=== PATIENT | female | born 1955 | race Caucasian/White ===

== ENCOUNTER 2018-08-20 14:08 | Emergency (ER) | payer BC ==
[2018-08-20 14:46] LABS: #Eosinphils 0.1 thou/uL (0.0-0.7); #Monocytes 0.3 thou/uL (0.11-0.59); #Neutrophils 3.3 thou/uL (1.40-6.50); %Basophils 0.3 % (0.0-1.0); %Eosinophils 1.3 % (0.0-10.0); %Lymphocytes 21.9 % (21.0-51.0); %Monocytes 6.2 % (0.0-10.0); %Neutrophils 70.3 % (42.0-75.0); Hemoglobin 13.2 g/dL (12.0-16.0); Mean Corpuscular HGB CONC 34.9 g/dL (32.0-36.0); Mean Corpuscular Hemoglobin 29.9 pg (27.0-31.0); Mean Corpuscular Volume 85.9 fL (78.0-98.0); Mean Platelet Volume 6.6 fL (7.4-10.4); Platelet Count 177 thou/uL (130-400); RBC Distribution Width 13.3 % (11.5-14.5); White Blood Cell (WBC) Count 4.7 thou/uL (4.8-10.8)
[2018-08-20 15:06] LABS: ALT (SGPT) 141 U/L (8-55); AST (SGOT) 163 U/L (5-34); Albumin 4.2 g/dL (3.4-4.8); Alkaline Phosphatase 88 U/L (40-150); Anion Gap 14 mmol/L (10-20); BUN (Urea Nitrogen) 15 mg/dL (9.8-20.1); Bilirubin, Total 1.4 mg/dL (0.2-1.2); Calc. Creatinine Clearance 0 mL/min (70-130); Calcium 9.4 mg/dL (7.8-10.44); Carbon Dioxide 22 mmol/L (23-31); Chloride 105 mmol/L (98-107); Estimated GFR-MDRD 71; Globulin 3.2 g/dL (2.4-3.5); Glucose 112 mg/dL (80-115); Protein, Total 7.4 g/dL (6.0-8.3); Sodium 137 mmol/L (136-145)
[2018-08-20] MEDS ORDERED: Aspirin Chewable 81 MG TAB ONE (15:23)
[2018-08-20 17:17] LABS: Troponin I Less than 0.010 ng/mL (< 0.028)
== END 2018-08-20 17:39 | disposition home or self-care (01) ==
LOC: ERS 14:08
DX: I10 Essential (primary) hypertension (principal); E11.9 Type 2 diabetes mellitus without complications; Z79.82 Long term (current) use of aspirin; Z79.899 Other long term (current) drug therapy; Z79.4 Long term (current) use of insulin
CPT/HCPCS: 36415; 80053; 84484; 85025; 93005; 94760

== ENCOUNTER → 2023-11-11 | Day surgery (SDC) | payer MEDICARE ==
[2023-11-08 11:59] VITALS: BMI 30.4
[~2023-11-11] MED LIST: Heparin 10,000 UNITS/ 10 ML VIAL ONE; Midazolam HCl 2 mg/2 ml Vial ONE; Nitroglycerin 50 MG/250 ML BOT 250 ML ONE; Verapamil 5 MG/2 ML VIAL ONE; fentaNYL 50 mcg/mL 1 mL Vial ONE
[2023-11-11 10:30] LABS: Hematocrit 37.5 % (36.0-47.0); Hemoglobin 12.4 g/dL (12.0-16.0); Mean Corpuscular HGB CONC 33.1 g/dL (32.0-36.0); Mean Corpuscular Hemoglobin 28.2 pg (27.0-31.0); Mean Corpuscular Volume 85.2 fL (78.0-98.0); Mean Platelet Volume 8.9 fL (7.4-10.4); Platelet Count 183 10x3/uL (130-400); RBC Distribution Width 13.6 % (11.5-14.5)
[2023-11-11 10:41] LABS: Anion Gap 12 mmol/L (10-20); BUN (Urea Nitrogen) 9 mg/dL (9.8-20.1); Calc. Creatinine Clearance 85 mL/min (70-130); Calcium 9.9 mg/dL (7.8-10.44); Carbon Dioxide 24 mmol/L (23-31); Cardiac Risk 4.2 (Less than 4.5); Chloride 104 mmol/L (98-107); Cholesterol 139 mg/dl (< 200 Desired); Estimated GFR 72; Glucose 207 mg/dL (80-115); HDL Cholesterol 33 mg/dL (>60 Neg Risk); LDL Cholesterol, Calculated 56 mg/dL; Potassium 3.8 mmol/L (3.5-5.1); Sodium 136 mmol/L (136-145); Triglycerides 248 mg/dL (Less than 150)
[2023-11-11 10:45] LABS: Prothrombin Time 13.5 sec (12.0-14.7)
[2023-11-11 10:46] LABS: PTT 35.2 sec (22.9-36.1)
[2023-11-11 10:57] LABS: Band 3 % (5-11); Eosinophils 4 % (0-10); Lymphocytes 25 % (21-51); Monocytes 6 % (0-10); Neutrophil 58 % (42-75); Platelet Adequacy Comment Platelets Normal; RBC Morphology Within Normal Limits; Reactive Lymphocytes 3 % (0-10)
[2023-11-11 12:15] LABS: Hemoglobin A1c 9.6 % (4.0-6.0)
== END ==
LOC: CCL 05:41
PROVIDERS: ATTEND Internal Medicine Cardiovascular Disease
PROC: 4A023N7 Measurement of Cardiac Sampling and Pressure, Left Heart, Percutaneous Approach (ICD-10-PCS; principal; 2023-11-11)
PROC: B205YZZ Plain Radiography of Left Heart using Other Contrast (ICD-10-PCS; 2023-11-11)
PROC: B246ZZZ Ultrasonography of Right and Left Heart (ICD-10-PCS; 2023-11-11)
DX: R07.89 Other chest pain (principal); I10 Essential (primary) hypertension; I25.119 Atherosclerotic heart disease of native coronary artery with unspecified angina pectoris; E03.9 Hypothyroidism, unspecified; E11.9 Type 2 diabetes mellitus without complications; K21.9 Gastro-esophageal reflux disease without esophagitis; J45.909 Unspecified asthma, uncomplicated; E78.2 Mixed hyperlipidemia; Z79.4 Long term (current) use of insulin; Z90.710 Acquired absence of both cervix and uterus; Z90.49 Acquired absence of other specified parts of digestive tract; Z90.89 Acquired absence of other organs; Z88.1 Allergy status to other antibiotic agents; Z79.82 Long term (current) use of aspirin; Z79.84 Long term (current) use of oral hypoglycemic drugs; Z79.899 Other long term (current) drug therapy; Z79.890 Hormone replacement therapy; Z88.8 Allergy status to other drugs, medicaments and biological substances
CPT/HCPCS: 71045; 80048; 80061; 82962; 83036; 85025; 85610; 85730; 86850; 86900; 86901; 93005; 93306; 93458; C1769 ×2; C1887; C1894; J1644; 36415; 36416; 93010; J2250; J3010

== ENCOUNTER 2023-11-12 14:30 | Inpatient (IN) | payer MEDICARE ==
[2023-11-12 15:02] VITALS: BMI 30.4
[2023-11-16] MEDS ORDERED: Fentanyl 250 MCG/5 ML VIAL ONE ×2 (06:33→09:39)
[2023-11-16] MEDS ORDERED: Midazolam HCl 2 mg/2 ml Vial ONE (06:34)
[2023-11-16] MEDS ORDERED: Etomidate 40 MG (20 mL) VIAL ONE (06:34)
[2023-11-16] MEDS ORDERED: Albumin 5% 0 ML ONE (06:34)
[2023-11-16] MEDS ORDERED: EPINEPHrine 1 MG/ML VIAL ONE (06:34)
[2023-11-16] MEDS ORDERED: Bupivacaine PF 0.5% 30 ML VIAL ONE (06:34)
[2023-11-16] MEDS ORDERED: PHENYLEPHRINE-NS 100 MCG/ML 10 ML SYRINGE ONE (06:34)
[2023-11-16] MEDS ORDERED: Vecuronium 10 MG VIAL ONE (06:36)
[2023-11-16] MEDS ORDERED: PROPOFOL 20 ML ONE (06:38)
[2023-11-16] MEDS ORDERED: Heparin 10,000 UNITS/1 ML VIAL 30,000 UNITS in Sodium Chloride 0.9% 1,000 ML FS SCH (07:00)
[2023-11-16] MEDS ORDERED: Lidocaine 1% MPF 2 ML VIAL ONE (07:03)
[2023-11-16] MEDS ORDERED: Sodium Chloride 0.9% 100 ML ONE (07:27)
[2023-11-16] MEDS ORDERED: CEFAZOLIN 2 GM VIAL ONE (07:27)
[2023-11-16] MEDS ORDERED: Vancomycin 1 GM VIAL ONE (07:48)
[2023-11-16] MEDS ORDERED: Papaverine 60 MG/2 ML VIAL ONE (07:48)
[2023-11-16] MEDS ORDERED: Potassium Chloride 60 mEq (30 mL) VIAL ONE (07:48)
[2023-11-16] MEDS ORDERED: Thrombin 5000 UNITS/5 ML VIAL ONE (07:48)
[2023-11-16] MEDS ORDERED: Heparin 5,000 UNITS/ML VIAL ONE (07:48)
[2023-11-16] MEDS ORDERED: Magnesium 5 GM/10 ML VIAL ONE (07:48)
[2023-11-16] MEDS ORDERED: Heparin 30,000 units/30 ml VIAL ONE (07:48)
[2023-11-16] MEDS ORDERED: Lidocaine 2% PF 100 mg/5 ml Syringe ONE (07:48)
[2023-11-16] MEDS ORDERED: Protamine Sulfate 250 MG/25 ML VIAL ONE (07:48)
[2023-11-16] MEDS ORDERED: Sodium Bicarb 50 mEq/50 ML VIAL ONE (07:48)
[2023-11-16] MEDS ORDERED: Esmolol 100 MG/10 ML VIAL ONE (07:48)
[2023-11-16] MEDS ORDERED: Mannitol 12.5 GM/50 ML ONE (07:48)
[2023-11-16] MEDS ORDERED: Cardioplegic Soln 1,000 ML BAG ONE (07:48)
[2023-11-16] MEDS ORDERED: Calcium Chloride 1 GM/10 ML Abboject SYRINGE ONE ×2 (07:48→12:07)
[2023-11-16] MEDS ORDERED: Insulin Regular, Human 100 UNIT/ML 10 ML VIAL ONE (09:16)
[2023-11-16] MEDS ORDERED: Rocuronium Bromide 10 MG/ML (10ML VIAL) ONE (09:51)
[2023-11-16] MEDS ORDERED: fentaNYL 50 mcg/mL 1 mL Vial SLOW IVP PRN (12:13)
[2023-11-16] MEDS ORDERED: hydrALAZINE 20 MG/ML VIAL SLOW IVP PRN (12:13)
[2023-11-16] MEDS ORDERED: Acetaminophen 325 MG TAB PO PRN (12:13)
[2023-11-16] MEDS ORDERED: Albumin 5% 12.5 GM (250 mL) BOT IVPB PRN (12:13)
[2023-11-16] MEDS ORDERED: Ipratropium/Albuterol 3 ML NEB NEB PRN (12:13)
[2023-11-16] MEDS ORDERED: Guaifenesin DM 100-10/5 ML UDCUP PO PRN (12:13)
[2023-11-16] MEDS ORDERED: traMADol HCl 50 MG TAB PO PRN ×2 (12:13)
[2023-11-16] MEDS ORDERED: NOREPINEPHRINE 8 MG/250 ML-D5W 250 ML IVPB PRN (12:13)
[2023-11-16] MEDS ORDERED: Mag-Al 1200 mg/1200 mg/30 ML UDCUP PO PRN (12:13)
[2023-11-16] MEDS ORDERED: Bisacodyl 5 MG TAB PO PRN (12:13)
[2023-11-16] MEDS ORDERED: Bisacodyl 10 MG SUPP PR PRN (12:13)
[2023-11-16] MEDS ORDERED: Promethazine HCl 25 MG/ML VIAL IM PRN (12:13)
[2023-11-16 12:28] LABS: Actual Bicarbonate (HCO3a) 19.6 mEq/L (22-28); Base Excess (BEa) -6.7 mEq/L (-2.0 to +3.0); CO2 Tension 42.4 mmHg (35.0-45.0); Calcium, Ionized (arterial) 1.22 mmol/L (1.12-1.30); Hematocrit-ABG 34 % (36.0-47.0); Hemoglobin (Hb) 11.5 g/dL (12.0-16.0); O2 Tension (PaO2), arterial 94.8 mmHg (> 80.0); Potassium - ABG Lab 3.19 mmol/L (3.70-5.30); pH, Arterial 7.283 (7.35-7.45)
[2023-11-16 12:29] LABS: Puncture Site Arterial Line
[2023-11-16] MEDS: Morphine 2 MG/ML VIAL SLOW IVP PRN (12:36)
[2023-11-16] MEDS: Sodium Chloride 0.9% 1,000 ML IV SCH (12:37)
[2023-11-16] MEDS: Post-Op Insulin Drip Protocol IVPB ONE (12:38)
[2023-11-16] MEDS: Magnesium 2 GM/50 ML(in water) 2 GM in Premix 1 BAG IVPB SCH (12:41)
[2023-11-16 12:42] LABS: #Basophils 0.06 10x3/uL (0.0-0.2); %Basophils 0.4 % (0.0-1.0); %Eosinophils 0.3 % (0.0-10.0); %Lymphocytes 21.6 % (21.0-51.0); %Monocytes 4.5 % (0.0-10.0); %Neutrophils 72.3 % (42.0-75.0); Hematocrit 33.7 % (36.0-47.0); Hemoglobin 10.8 g/dL (12.0-16.0); Mean Corpuscular Hemoglobin 28.3 pg (27.0-31.0); Mean Corpuscular Volume 88.5 fL (78.0-98.0); Mean Platelet Volume 8.9 fL (7.4-10.4); Platelet Count 187 10x3/uL (130-400); RBC Distribution Width 13.3 % (11.5-14.5); Red Blood Cell (RBC) Count 3.81 mill/uL (4.20-5.40)
[2023-11-16] MEDS: Ketorolac Tromethamine 30 MG (1 mL) VIAL IVP SCH (12:42)
[2023-11-16 12:59] LABS: INR-International Normal Ratio 1.4; Prothrombin Time 16.9 sec (12.0-14.7)
[2023-11-16 13:00] LABS: PTT 27.2 sec (22.9-36.1)
[2023-11-16 13:48] LABS: Anion Gap 11 mmol/L (10-20); BUN (Urea Nitrogen) 8 mg/dL (9.8-20.1); Calc. Creatinine Clearance 99 mL/min (70-130); Calcium 8.3 mg/dL (7.8-10.44); Carbon Dioxide 20 mmol/L (23-31); Chloride 114 mmol/L (98-107); Estimated GFR 80; Glucose 246 mg/dL (80-115); Potassium 3.1 mmol/L (3.5-5.1); Sodium 142 mmol/L (136-145)
[2023-11-16] MEDS ORDERED: Dextrose 50% Abboject 50 ML SYRINGE SLOW IVP PRN (14:00)
[2023-11-16] MEDS ORDERED: Dextrose 5% in Water 1,000 ML IV PRN (14:00)
[2023-11-16] MEDS ORDERED: Glucagon 1 MG/ML KIT SC PRN (14:00)
[2023-11-16] MEDS: Potassium Chloride 20 MEQ (100 mL) BAG IVPB PRN (14:01)
[2023-11-16] MEDS: CEFAZOLIN 2 GM in Sodium Chloride 0.9% 100 ML IVPB SCH (14:44)
[2023-11-16 14:47] LABS: Actual Bicarbonate (HCO3a) 18.7 mEq/L (22-28); Base Excess (BEa) -5.5 mEq/L (-2.0 to +3.0); CO2 Tension 32.3 mmHg (35.0-45.0); Calcium, Ionized (arterial) 1.19 mmol/L (1.12-1.30); Carboxyhemoglobin (COHb) 0.1 gm% (0.0-3.0); Hematocrit-ABG 35 % (36.0-47.0); Hemoglobin (Hb) 11.9 g/dL (12.0-16.0); O2 Tension (PaO2), arterial 79.8 mmHg (> 80.0); Potassium - ABG Lab 4.14 mmol/L (3.70-5.30)
[2023-11-16 14:48] LABS: ALV-art Gradient 165.025 mmHg (0-20); Puncture Site Arterial Line
[2023-11-16] MEDS: fentaNYL 50 mcg/mL 1 mL Vial SLOW IVP PRN (15:02)
[2023-11-16] MEDS: Ondansetron PF 4 MG/2 ML Vial IVP PRN (15:40)
[2023-11-16] MEDS: INSULIN REGULAR IN 0.9 % NACL 100 UNITS in Premix 1 BAG IVPB SCH (16:42)
[2023-11-16] MEDS: Aspirin Chewable 81 MG TAB PO SCH (16:53)
[2023-11-16 18:13] LABS: Hematocrit 33.8 % (36.0-47.0); Hemoglobin 10.8 g/dL (12.0-16.0)
[2023-11-16 18:31] LABS: Potassium 4.2 mmol/L (3.5-5.1)
[2023-11-16] MEDS: HYDROcodone/Acetaminophen 5/325 mg Tablet PO PRN ×2 (18:47→22:45)
[2023-11-16] MEDS: Atorvastatin Calcium 40 MG TAB PO SCH (21:10)
[2023-11-16] MEDS: Famotidine/PF 20 mg/2ml Vial SLOW IVP SCH (21:11)
[2023-11-17 05:41] LABS: Anion Gap 9 mmol/L (10-20); BUN (Urea Nitrogen) 10 mg/dL (9.8-20.1); Calc. Creatinine Clearance 115 mL/min (70-130); Calcium 8.4 mg/dL (7.8-10.44); Carbon Dioxide 20 mmol/L (23-31); Chloride 112 mmol/L (98-107); Estimated GFR 94; Glucose 115 mg/dL (80-115); Sodium 137 mmol/L (136-145)
[2023-11-17 05:55] LABS: #Basophils 0.03 10x3/uL (0.0-0.2); #Eosinphils Less than 0.03 10x3/uL (0.0-0.7); %Basophils 0.3 % (0.0-1.0); %Lymphocytes 23.8 % (21.0-51.0); %Monocytes 14.4 % (0.0-10.0); %Neutrophils 61.2 % (42.0-75.0); Hematocrit 31.5 % (36.0-47.0); Hemoglobin 10.3 g/dL (12.0-16.0); Mean Corpuscular HGB CONC 32.7 g/dL (32.0-36.0); Mean Corpuscular Hemoglobin 27.8 pg (27.0-31.0); Mean Corpuscular Volume 85.1 fL (78.0-98.0); Mean Platelet Volume 10.1 fL (7.4-10.4); Platelet Count 174 10x3/uL (130-400); RBC Distribution Width 13.6 % (11.5-14.5)
[2023-11-17] MEDS: Albumin 5% 12.5 GM (250 mL) BOT IVPB PRN (08:06)
[2023-11-17] MEDS: Aspirin 325 MG TAB PO SCH (08:06)
[2023-11-17] MEDS: Magnesium 2 GM/50 ML(in water) 2 GM in Premix 1 BAG IVPB SCH (08:06)
[2023-11-17] MEDS: Insulin Glargine 30 UNITS/0.3 ML VIAL SC SCH (10:15)
[2023-11-17] MEDS: Heparin 5,000 UNITS/ML VIAL SC SCH (14:57)
[2023-11-17] MEDS: Insulin Regular, Human 100 UNIT/ML 10 ML VIAL SC PRN (15:58)
[2023-11-17] MEDS: glyBURIDE 5 MG TAB PO SCH (22:07)
[2023-11-18] MEDS: Levothyroxine Sodium 88 MCG TAB PO SCH (05:44)
[2023-11-18] MEDS: Pioglitazone HCl 15 MG TAB PO SCH (09:01)
[2023-11-18] MEDS: Insulin Glargine 30 UNITS/0.3 ML VIAL SC SCH (09:02)
[2023-11-18] MEDS: Furosemide 40 MG (4 mL) VIAL SLOW IVP SCH ×2 (09:03→13:37)
[2023-11-18 13:34] LABS: Analyzer IN Cardio OR; Calcium, Ionized (arterial) 1.12 mmol/L (1.12-1.30); Carboxyhemoglobin (COHb) 0.3 gm% (0.0-3.0); Hematocrit-ABG 35 % (36.0-47.0); Hemoglobin (Hb) 11.9 g/dL (12.0-16.0)
[2023-11-18 13:34] LABS: Actual Bicarbonate (HCO3a) 22.3 mEq/L (22-28); Analyzer IN Cardio OR; Base Excess (BEa) -2.4 mEq/L (-2.0 to +3.0); CO2 Tension 38.4 mmHg (35.0-45.0); Calcium, Ionized (arterial) 1.22 mmol/L (1.12-1.30); Carboxyhemoglobin (COHb) 0.6 gm% (0.0-3.0); Hematocrit-ABG 36 % (36.0-47.0); Hemoglobin (Hb) 12.3 g/dL (12.0-16.0); O2 Tension (PaO2), arterial 182.6 mmHg (> 80.0); Potassium - ABG Lab 3.57 mmol/L (3.70-5.30); pH, Arterial 7.382 (7.35-7.45)
[2023-11-18 13:35] LABS: Actual Bicarbonate (HCO3a) 21.3 mEq/L (22-28); Analyzer IN Cardio OR; Base Excess (BEa) -4.7 mEq/L (-2.0 to +3.0); CO2 Tension 43.4 mmHg (35.0-45.0); Calcium, Ionized (arterial) 1.07 mmol/L (1.12-1.30); Carboxyhemoglobin (COHb) 0.3 gm% (0.0-3.0); Hematocrit-ABG 29 % (36.0-47.0); O2 Tension (PaO2), arterial 552.6 mmHg (> 80.0); Potassium - ABG Lab 3.28 mmol/L (3.70-5.30); pH, Arterial 7.309 (7.35-7.45)
[2023-11-18 13:35] LABS: Actual Bicarbonate (HCO3a) 24.6 mEq/L (22-28); Analyzer IN Cardio OR; Base Excess (BEa) -2.6 mEq/L (-2.0 to +3.0); CO2 Tension 54.7 mmHg (35.0-45.0); Carboxyhemoglobin (COHb) 0.3 gm% (0.0-3.0); Hematocrit-ABG 29 % (36.0-47.0); O2 Tension (PaO2), arterial 491.1 mmHg (> 80.0); Potassium - ABG Lab 4.02 mmol/L (3.70-5.30); pH, Arterial 7.271 (7.35-7.45)
[2023-11-18 13:36] LABS: Actual Bicarbonate (HCO3a) 20.9 mEq/L (22-28); Analyzer IN Cardio OR; Base Excess (BEa) -4.3 mEq/L (-2.0 to +3.0); CO2 Tension 38.5 mmHg (35.0-45.0); Calcium, Ionized (arterial) 1.18 mmol/L (1.12-1.30); Hematocrit-ABG 33 % (36.0-47.0); Hemoglobin (Hb) 11.1 g/dL (12.0-16.0); Potassium - ABG Lab 3.44 mmol/L (3.70-5.30); pH, Arterial 7.352 (7.35-7.45)
[2023-11-18 13:36] LABS: Actual Bicarbonate (HCO3a) 23.3 mEq/L (22-28); Analyzer IN Cardio OR; CO2 Tension 46.7 mmHg (35.0-45.0); Calcium, Ionized (arterial) 1.28 mmol/L (1.12-1.30); Carboxyhemoglobin (COHb) 0.3 gm% (0.0-3.0); Hematocrit-ABG 30 % (36.0-47.0); Hemoglobin (Hb) 10.2 g/dL (12.0-16.0); O2 Tension (PaO2), arterial 77.2 mmHg (> 80.0); Potassium - ABG Lab 3.35 mmol/L (3.70-5.30); pH, Arterial 7.315 (7.35-7.45)
[2023-11-18 13:38] LABS: Puncture Site Arterial Line
[2023-11-18 13:38] LABS: Puncture Site Arterial Line
[2023-11-18 13:39] LABS: Puncture Site Arterial Line
[2023-11-18 13:40] LABS: Calcium, Ionized (arterial) 1.97 mmol/L (1.12-1.30); Puncture Site Arterial Line
[2023-11-18 13:40] LABS: Puncture Site Arterial Line
[2023-11-18 13:41] LABS: Puncture Site Arterial Line
[2023-11-19] MEDS: Insulin Glargine 30 UNITS/0.3 ML VIAL SC SCH (21:47)
[2023-11-19] MEDS: Metoprolol Tartrate 25 MG TAB PO SCH (21:47)
[2023-11-19] MEDS: Famotidine 20 MG TAB PO SCH (21:48)
[2023-11-20 12:54] VITALS: TEMP 98
[2023-11-20 13:04] VITALS: BP 132/66
== END 2023-11-20 13:40 | disposition home or self-care (01) | DRG 236 ==
LOC: SURG A 11-16 05:44 → CCU 11-16 12:22 → 2NO 11-17 19:47
PROVIDERS: ADMIT Student in an Organized Health Care Education/Training Program; ATTEND Student in an Organized Health Care Education/Training Program
PROC: 02100Z9 Bypass Coronary Artery, One Artery from Left Internal Mammary, Open Approach (ICD-10-PCS; principal; 2023-11-16)
PROC: 021109W Bypass Coronary Artery, Two Arteries from Aorta with Autologous Venous Tissue, Open Approach (ICD-10-PCS; 2023-11-16)
PROC: 06BQ4ZZ Excision of Left Saphenous Vein, Percutaneous Endoscopic Approach (ICD-10-PCS; 2023-11-16)
PROC: 02L70CK Occlusion of Left Atrial Appendage with Extraluminal Device, Open Approach (ICD-10-PCS; 2023-11-16)
PROC: 4A133R1 Monitoring of Arterial Saturation, Peripheral, Percutaneous Approach (ICD-10-PCS; 2023-11-16)
DX: I25.118 Atherosclerotic heart disease of native coronary artery with other forms of angina pectoris (principal); E03.9 Hypothyroidism, unspecified; E11.9 Type 2 diabetes mellitus without complications; E78.00 Pure hypercholesterolemia, unspecified; Z88.1 Allergy status to other antibiotic agents; Z90.710 Acquired absence of both cervix and uterus; Z90.49 Acquired absence of other specified parts of digestive tract; Z79.82 Long term (current) use of aspirin; Z79.899 Other long term (current) drug therapy; Z79.890 Hormone replacement therapy; Z79.4 Long term (current) use of insulin
CPT/HCPCS: 36415; 36416; 36430; 71045; 80048; 82805; 85025; 85610; 85730; 86850; 86900; 86901; 93005; 93010; 93798; 94002; 94150; A4311; A4648; C1713; C1751; C1889; J0171; J0665; J1644; J1815; J1885; J1940; J2001; J2150; J2250; J2272; J2405; J2440; J2704; J2720; J3010; J3370; J3475; J3480; J3490; J7030; P9045

== ENCOUNTER 2023-11-28 20:17 | Emergency (ER) | payer MEDICARE ==
[2023-11-28 20:47] LABS: Hematocrit 38.2 % (36.0-47.0); Hemoglobin 12.2 g/dL (12.0-16.0); Mean Corpuscular HGB CONC 31.9 g/dL (32.0-36.0); Mean Corpuscular Hemoglobin 27.8 pg (27.0-31.0); Mean Platelet Volume 8.7 fL (7.4-10.4); Platelet Count 460 10x3/uL (130-400); RBC Distribution Width 13.9 % (11.5-14.5); Red Blood Cell (RBC) Count 4.39 mill/uL (4.20-5.40)
[2023-11-28 21:02] LABS: ALT (SGPT) 16 U/L (8-55); AST (SGOT) 16 U/L (5-34); Albumin 3.2 g/dL (3.4-4.8); Alkaline Phosphatase 105 U/L (40-110); Anion Gap 14 mmol/L (10-20); BUN (Urea Nitrogen) 19 mg/dL (9.8-20.1); Bilirubin, Total 0.8 mg/dL (0.2-1.2); Calc. Creatinine Clearance 0 mL/min (70-130); Calcium 11.1 mg/dL (7.8-10.44); Carbon Dioxide 24 mmol/L (23-31); Chloride 97 mmol/L (98-107); Estimated GFR 50; Globulin 5.7 g/dL (2.4-3.5); Glucose 368 mg/dL (80-115); Lipase 37 U/L (8-78); Magnesium 1.8 mg/dL (1.6-2.6); Potassium 4.1 mmol/L (3.5-5.1); Protein, Total 8.9 g/dL (5.8-8.1); Sodium 131 mmol/L (136-145)
[2023-11-28 21:06] LABS: Band 2 % (5-11); Lymphocytes 17 % (21-51); Macrocytosis SLIGHT = 6-15 cells HPF (0-5); Monocytes 8 % (0-10); Neutrophil 72 % (42-75); Platelet Adequacy Comment Platelets Increased; Polychromasia SLIGHT = 2-3 cells HPF (0-2); Reactive Lymphocytes 1 % (0-10)
[2023-11-28 21:29] LABS: Troponin I 0.241 ng/mL (< 0.028)
== END 2023-11-28 21:52 | disposition home or self-care (01) ==
LOC: ERS 20:17
DX: R07.89 Other chest pain (principal); E11.9 Type 2 diabetes mellitus without complications; Z79.84 Long term (current) use of oral hypoglycemic drugs; Z79.4 Long term (current) use of insulin; Z79.899 Other long term (current) drug therapy
CPT/HCPCS: 71045; 80053; 83690; 83735; 84484; 85025; 93005; 94760

== ENCOUNTER 2024-12-23 21:56 | Emergency (ER) | payer MEDICARE ==
[2024-12-23] MEDS ORDERED: HYDROcodone/Acetaminophen 5/325 mg Tablet ONE (23:18)
[2024-12-24 00:41] LABS: Hematocrit 36.3 % (36.0-47.0); Hemoglobin 11.9 g/dL (12.0-16.0); Mean Corpuscular Hemoglobin 28.4 pg (27.0-31.0); Mean Corpuscular Volume 86.6 fL (78.0-98.0); Platelet Count 181 10x3/uL (130-400); Red Blood Cell (RBC) Count 4.19 mill/uL (4.20-5.40); White Blood Cell (WBC) Count 12.02 10x3/uL (4.8-10.8)
[2024-12-24 00:43] LABS: ALT (SGPT) 12 U/L (Less than 34); AST (SGOT) 23 U/L (11-34); Albumin 3.5 g/dL (3.1-4.5); Alkaline Phosphatase 90 U/L (40-110); Anion Gap 14 mmol/L (10-20); BUN (Urea Nitrogen) 14 mg/dL (9.8-20.1); Bilirubin, Total 0.5 mg/dL (0.3-1.2); Calc. Creatinine Clearance 0 mL/min (70-130); Calcium 10.1 mg/dL (7.8-10.44); Carbon Dioxide 22 mmol/L (23-31); Chloride 105 mmol/L (98-107); Globulin 4.2 g/dL (2.4-3.5); Glucose 275 mg/dL (80-115); Potassium 4.2 mmol/L (3.5-5.1); Sodium 137 mmol/L (136-145)
[2024-12-24 01:10] LABS: Platelet Adequacy Comment Platelets Normal; RBC Morphology Within Normal Limits; Smudge Cells 9.8 %
[2024-12-24] MEDS ORDERED: HYDROcodone/Acetaminophen 5/325 mg Tablet ONE (01:26)
[2024-12-24] MEDS ORDERED: Iopamidol 370 76% 100 ML VIAL ONE (12:42)
== END 2024-12-24 01:38 | disposition home or self-care (01) ==
LOC: ERS 21:56
DX: R07.89 Other chest pain (principal); M54.50 Low back pain, unspecified; R91.1 Solitary pulmonary nodule; E11.9 Type 2 diabetes mellitus without complications; Z79.82 Long term (current) use of aspirin; Z79.4 Long term (current) use of insulin; W01.198A Fall on same level from slipping, tripping and stumbling with subsequent striking against other object, initial encounter
CPT/HCPCS: 71101; 71260; 72100; 72131; 80053; 85025; 96374; 99284; J2272; Q9967

== ENCOUNTER 2025-02-19 10:20 | Outpatient (CLI) | payer MEDICARE | END 2025-02-19 10:21 | disposition home or self-care (01) | LOC: CT 10:20 | PROVIDERS: ATTEND Internal Medicine Critical Care Medicine | DX: R91.8 Other nonspecific abnormal finding of lung field (principal); A15.0 Tuberculosis of lung | CPT/HCPCS: 71250 ==